=== PATIENT | female | born 1950 | race Caucasian/White ===

== ENCOUNTER 2018-11-23 08:29 | Outpatient (CLI) | payer MEDICARE, BC ==
[2018-11-23] VITALS (8 sets, daily range): BP systolic 109–142; BP diastolic 63–80
[~2018-11-23] VITALS: Ht 165.1 cm; Wt 81.8 kg
[2018-11-23] MEDS ORDERED: normal saline 500ml IV soln 500 ML IV ONE (09:35)
[2018-11-23] MEDS ORDERED: nitroGLYCERIN 0.4mg SUBLingual tab SL PRN (09:35)
[2018-11-23] MEDS ORDERED: aminophylline 250mg/10ml inj. IV PRN (09:35)
[2018-11-23] MEDS ORDERED: regadenoson 0.4mg/5ml syringe IV ONE (09:35)
== END 2018-11-23 23:59 | disposition home or self-care (01) ==
LOC: RAD 08:29
PROVIDERS: ATTEND Internal Medicine Cardiovascular Disease
DX: Z01.810 Encounter for preprocedural cardiovascular examination (principal); E78.5 Hyperlipidemia, unspecified; I10 Essential (primary) hypertension; Z88.0 Allergy status to penicillin; E66.01 Morbid (severe) obesity due to excess calories; Z68.41 Body mass index [BMI] 40.0-44.9, adult; Z71.3 Dietary counseling and surveillance
CPT/HCPCS: 78452; 93017; A9500; J2785; J7040